=== PATIENT | female | born 1990 | race Caucasian/White ===

== ENCOUNTER 2022-09-30 13:17 | Inpatient (IN) | payer MEDICAID, SELFPAY ==
[2022-09-30 13:21] VITALS: BP 118/77; PULSE 96; RESP 14; TEMP 36.5; O2SAT 95; BMI 42.7
--- NOTE | 2022-09-30 13:47 | ED.C_ITS ---
HPI - Psych General: Chief Complaint: Psychiatric Symptoms Stated Complaint: SI Time Seen by Provider: 09/30/22 13:37 History of Present Illness: Patient presents to the ER with thoughts of suicidal ideation. Patient admits to having schizoaffective disorder. He also admits to masking it with methamphetamines fentanyl and heroin. He says he has been sober for a week and has not been able to get back on his medicine so the people at [facility] where he lives told him to come here and get evaluated. MD complaint: suicidal ideation Onset (ago): week(s) Duration: constant History of same: Yes Relieving factors: medication Exacerbating factors: other (Being without his medicine) Context: recent drug abuse and not taking psychiatric medications Associated psychiatric symptoms: suicidal ideation and auditory hallucinations Associated symptoms: Reports auditory hallucinations, delusions and suicidal ideation Treatments prior to arrival: none Review of Systems General: Reports: 10 or more systems reviewed and unremarkable except in HPI and below Psych: Reports: auditory hallucinations and suicidal ideation Physical Exam Const: COMMON NORMALS: no acute distress, average body habitus, patient oriented x3, no limitations, healthy appearing, alert and well nourished HENMT: COMMON NORMALS: normocephalic, atraumatic, hearing grossly normal bilaterally, external ears normal, Normal external nose present and moist oral mucous membranes HEAD & SCALP: normocephalic and atraumatic NOSE: Normal external nose present EXTERNAL EAR: Yes external ears normal Eye: COMMON NORMALS: Equal, round and reactive pupils present, EOMs intact bilaterally, conjunctivae normal and no scleral icterus CONJUNCTIVA: Yes conjunctivae normal PUPIL: Yes Equal, round and reactive pupils present Neck/C-Spine: COMMON NORMALS: full ROM, no lymphadenopathy, supple, no meningeal signs, no JVD and Thyroid normal THYROID: Thyroid normal Lymph: LYMPHATIC: no lymphadenopathy noted Chest: COMMONS NORMALS: normal inspection of the chest and normal palpation of entire chest wall Resp: COMMON NORMALS: normal respiratory effort, No retractions, No use of accessory muscles and clear to auscultation bilaterally AUSCULTATION: clear to auscultation bilaterally Cardio: COMMON NORMALS: no JVD, regular rate, regular rhythm, S1 normal heart sound present, S2 normal heart sound present, No gallops present (Cardio), No clicks present (Cardio), No murmurs present (Cardio) and No rub (Cardio) RATE: regular rate RHYTHM: regular rhythm HEART SOUNDS: S1 normal heart sound present and S2 normal heart sound present GI: COMMON NORMALS: Normal to inspection, nondistended, normoactive bowel sounds present, Soft to palpation, non-tender, No hepatosplenomegaly present and no masses PALPATION: Yes Soft to palpation and Yes No hepatosplenomegaly present Neuro: COMMON NORMALS: patient oriented x3 SENSORIUM/ORIENTATION: Yes alert MENINGEAL SIGNS: Yes no meningeal signs Psych: COMMON NORMALS: speech normal APPEARANCE: Yes grossly normal ACTIVITY/MOTOR BEHAVIOR: Yes appropriate eye contact SPEECH: Yes normal speech MOOD & AFFECT: Yes euthymic mood THOUGHT CONTENT: Yes Suicidality present, Yes delusions and Yes Hallucination(s) present Course Vital Signs: Vital signs: Vital Signs Temperature 97.7 F 09/30/22 13:21 Pulse Rate 96 09/30/22 13:21 Respiratory Rate 14 09/30/22 13:21 Blood Pressure 118/77 09/30/22 13:21 Pulse Oximetry 95 09/30/22 13:21 Oxygen Delivery Me thod Room Air 09/30/22 13:21 [facility] - Psych Medical Decision Making Patient presents to the ER with complaints of hearing voices that are telling him to harm himself. Patient it is not admitted methamphetamine user and has not been on his medicine for his schizoaffective disorder for quite some time. Patient states he has been self-medicating with methamphetamines but decided to quit then approximately 1 week ago and then voices started coming back. Psychi atric work-up was obtained patient is cleared admission to the Neuropsych Unit. Neuropsych Unit at this time does not have any beds but are anticipating 7 discharges in the morning. Differential Diagnosis Likely chronic schizophrenia and suicidal ideation; Unlikely acute psychosis, bipolar disorder, depression, drug-induced psychotic disorder or acute anxiety Medical Records I reviewed the patient's medical records. Lab Data I reviewed the patient's lab results. 09/30/22 13:58 09/30/22 13:58 Laboratory Results WBC 4.1 10^3/uL (4.0-10.0) 09/30/22 13:58 RBC 4.11 10^6/uL (4.1-5.3) 09/30/22 13:58 Hgb 12.7 g/dL (11.7-16.6) 09/30/22 13:58 Hct 38.9 % (42.0-52.0) L 09/30/22 13:58 MCV 94.6 fl (80-94) H 09/30/22 13:58 MCH 30.9 pg (28.0-34.0) 09/30/22 13:58 MCHC 32.6 g/dL (30.0-36.0) 09/30/22 13:58 RDW 13.8 % (12.1-15.1) 09/30/22 13:58 Plt Count 164 10^3/cmm (130-400) 09/30/22 13:58 MPV 11.6 fL (7.4-10.4) H 09/30/22 13:58 Neut % (Auto) 48.7 % 09/30/22 13:58 Lymph % (Auto) 36.7 % 09/30/22 13:58 [place] % (Auto) 10.4 % 09/30/22 13:58 Eos % (Auto) 2.7 % 09/30/22 13:58 Baso % (Auto) 0.5 % 09/30/22 13:58 Neut # (Auto) 2.01 10^3/uL (1.8-7.7) 09/30/22 13:58 Lymph # (Auto) 1.5 10^3/uL (0.8-4.8) 09/30/22 13:58 [place] # (Auto) 0.4 10^3/uL (0.2-0.9) 09/30/22 13:58 Eos # (Auto) 0.1 10^3/uL (0.0-0.8) 09/30/22 13:58 Baso # (Auto) 0.0 10^3/uL (0.0-0.1) 09/30/22 13:58 Nucleated RBC % (auto) 0 % 09/30/22 13:58 Nucleated RBCs # 0.0 /100WBC 09/30/22 13:58 Sodium 140 mmol/L (136-145) 09/30/22 13:58 Potassium 4.1 mmol/L (3.5-5.1) 09/30/22 13:58 Chloride 106 mmol/L (98-107) 09/30/22 13:58 Carbon Dioxide 26 mmol/L (22-29) 09/30/22 13:58 Anion Gap 12.1 (5-19) 09/30/22 13:58 BUN 11 mg/dL (6-20) 09/30/22 13:58 Creatinine 0.7 mg/dL (0.7-1.2) 09/30/22 13:58 GFR Calculation 129.9 mL/min (90-130) 09/30/22 13:58 Glucose 139 mg/dL (65-115) H 09/30/22 13:58 Calculated Osmolality 292 mOsm/kg (285-295) 09/30/22 13:58 Calcium 8.2 mg/dL (8.5-10.5) L 09/30/22 13:58 Total Bilirubin 0.3 mg/dL (0.15-1.2) 09/30/22 13:58 AST 44 U/L (0-40) H 09/30/22 13:58 ALT 118 U/L (0-41) H 09/30/22 13:58 Alkaline Phosphatase 112 U/L (40-130) 09/30/22 13:58 Total Protein 6.3 g/dL (6.6-8.7) L 09/30/22 13:58 Albumin 3.8 g/dL (3.5-5.2) 09/30/22 13:58 Globulin 2.5 g/dL (1.3-4.6) 09/30/22 13:58 Urine Color Yellow (Yellow) 09/30/22 13:35 Urine Appearance Clear (CLEAR) 09/30/22 13:35 Urine pH 7 (5-7) 09/30/22 13:35 Ur Specific [place] 1.010 (1.005-1.030) 09/30/22 13:35 Urine Protein Neg (Negative) 09/30/22 13:35 Urine Glucose (UA) Norm (Normal) 09/30/22 13:35 Urine Ketones Negative (Negative) 09/30/22 13:35 Urine Blood Neg (Negative) 09/30/22 13:35 Urine Nitrate Negative (Negative) 09/30/22 13:35 Urine Bilirubin Neg (Negative) 09/30/22 13:35 Urine Urobilinogen Norm mg/dL (Negative) 09/30/22 13:35 Ur Leukocyte Esterase Trace (Negative) H 09/30/22 13:35 Urine RBC Rare /hpf (0-2) 09/30/22 13:35 Urine WBC 5-10 /hpf (0-5) H 09/30/22 13:35 Ur Squamous Epith Cells 0-4 /hpf (0-5) H 09/30/22 13:35 Amorphous Sediment Not Reportable 09/30/22 13:35 Urine Bacteria Trace /hpf (NONE) 09/30/22 13:35 Salicylates < 0.3 mg/dL (3-10) L 09/30/22 13:58 Urine Opiates Screen Negative ng/mL (Negative) 09/30/22 13:35 Acetaminophen < 5.0 ug/mL (10-30) L 09/30/22 13:58 Ur Barbiturates Screen Negative ng/mL (Negative) 09/30/22 13:35 Ur Phencyclidine Scrn Negative ng/mL (Negative) 09/30/22 13:35 Ur Amphetamines Screen Negative ng/mL (Negative) 09/30/22 13:35 U Benzodiazepines Scrn Negative ng/mL (Negative) 09/30/22 13:35 Urine Cocaine Screen Negative ng/mL (Negative) 09/30/22 13:35 U Marijuana (THC) Screen Positive ng/mL (Negative) H 09/30/22 13:35 Ethyl Alcohol < 10 mg/dL (0-10) 09/30/22 13:58 Discharge Plan Discharge Clinical Impression: Suicidal ideation, Schizoaffective disorder Condition: Stable Prescriptions: No Action bupropion HCl 150 mg Tablet Sustained-Release 12 Hr 150 mg PO DAILY mirtazapine 15 mg Tablet 15 mg PO BEDTIME prazosin 2 mg Capsule 2 mg PO BEDTIME Coding Level of Care Code ED Sand Cutter Operator for Mila Miner
[2022-09-30 14:10] LABS: Basophils % 0.5 %; Eosinophils # 0.1 10^3/uL (0.0-0.8); Eosinophils % 2.7 %; Hematocrit 38.9 % (42.0-52.0); Hemoglobin 12.7 g/dL (11.7-16.6); Lymphocytes # 1.5 10^3/uL (0.8-4.8); Lymphocytes % 36.7 %; Mean Corpuscular HGB Conc 32.6 g/dL (30.0-36.0); Mean Corpuscular Hemoglobin 30.9 pg (28.0-34.0); Mean Corpuscular Volume 94.6 fl (80-94); Mean Platelet Volume 11.6 fL (7.4-10.4); Monocytes # 0.4 10^3/uL (0.2-0.9); Monocytes % 10.4 %; Neutrophils # 2.01 10^3/uL (1.8-7.7); Neutrophils % 48.7 %; Nucleated Red Blood Cells % 0 %; Platelet Count 164 10^3/cmm (130-400); Red Blood Count 4.11 10^6/uL (4.1-5.3); Red Cell Distribution Width 13.8 % (12.1-15.1); White Blood Count 4.1 10^3/uL (4.0-10.0)
[2022-09-30 14:15] LABS: Amphetamines Screen Urine Negative (Negative); Barbiturates Screen Urine Negative (Negative); Benzodiazepines Screen Urine Negative (Negative); Cocaine Screen Urine Negative (Negative); Opiate Screen Urine Negative (Negative); PCP Screen Urine Negative (Negative); THC Screen Urine Positive (Negative)
[2022-09-30 14:22] LABS: Alanine Aminotransferase 118 U/L (0-41); Albumin Level 3.8 g/dL (3.5-5.2); Alkaline Phosphatase 112 U/L (40-130); Anion Gap 12.1 (5-19); Aspartate Amino Transferase 44 U/L (0-40); Blood Urea Nitrogen 11 mg/dL (6-20); Calcium 8.2 mg/dL (8.5-10.5); Carbon Dioxide 26 mmol/L (22-29); Chloride 106 mmol/L (98-107); Globulin 2.5 g/dL (1.3-4.6); Glomerular Filtration Rate 129.9 mL/min (90-130); Glucose 139 mg/dL (65-115); Osmolality Calculated 292 mOsm/kg (285-295); Potassium 4.1 mmol/L (3.5-5.1); Sodium 140 mmol/L (136-145); Total Bilirubin 0.3 mg/dL (0.15-1.2); Total Protein 6.3 g/dL (6.6-8.7)
[2022-09-30 14:23] LABS: Acetaminophen < 5.0 ug/mL (10-30); Alcohol Level < 10 mg/dL (0-10); Salicylate < 0.3 mg/dL (3-10)
[2022-09-30 14:26] LABS: Add Urine Microscopic? YES; Bilirubin Urine Neg (Negative); Blood Urine Neg (Negative); Glucose Urine UA Norm (Normal); Ketones Urine Negative (Negative); Leukocyte Esterase Urine Trace (Negative); Nitrate Urine Negative (Negative); Protein Urine Neg (Negative); RBC Urine RARE /hpf (0-2); Urine Appearance Clear (CLEAR); Urine Color Yellow (Yellow); Urobilinogen Urine Norm (Negative); pH Urine 7 (5-7)
[2022-09-30 14:27] LABS: Add Urine Culture? No; Bacteria Urine TRACE /hpf; Squamous Epithelial Cell Urine 0-4 /hpf (0-5)
[2022-09-30 17:58] VITALS: PULSE 85; RESP 18; O2SAT 95
--- NOTE | 2022-09-30 19:05 | PC.NURSE ---
REPORT GIVEN TO ANA CHENG ASSUMED CARE.
[2022-09-30] MEDS: LORazepam 0.5 mg Tablet PO (19:07)
--- NOTE | 2022-09-30 20:47 | PC.NURSE ---
Id band removed by patient because it has male on the label and his name. Pt is transitioning to female and goes by the name star.
[2022-09-30 23:20] VITALS: BP 123/77; PULSE 95; O2SAT 96
[2022-09-30] MEDS: prazosin 1 mg Capsule 2 MG PO (23:48)
[2022-09-30] MEDS: trazodone 50 mg Tablet PO (23:58)
[2022-10-01] MEDS: acetaminophen 500 mg Tablet 1000 MG PO (03:38)
--- NOTE | 2022-10-01 07:16 | PC.NURSE ---
Patient asleep when I came on shift, sitter outside of room.
--- NOTE | 2022-10-01 07:46 | PC.NURSE ---
Patient given breakfast.
[2022-10-01 08:09] VITALS: BP 106/52; PULSE 67; RESP 18; O2SAT 94
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
[2022-10-01] MEDS: LORazepam 0.5 mg Tablet PO (14:59)
[2022-10-01 16:12] VITALS: BP 110/67; PULSE 69; RESP 20; O2SAT 96
[2022-10-01 16:43] VITALS: BP 123/87; PULSE 94; RESP 16; TEMP 36.8; O2SAT 95
[2022-10-01] MEDS: hyDROXYzine 25 mg Capsule 50 MG PO (18:17)
[2022-10-01] MEDS: paliperidone ER 6 mg Tablet PO (20:16)
[2022-10-01] MEDS: fluoxetine 20 mg Capsule PO (20:16)
[2022-10-01] MEDS: prazosin 1 mg Capsule 2 MG PO (20:16)
[2022-10-01] MEDS: valACYclovir 1,000 mg Tablet 1000 MG PO (20:16)
[2022-10-01] MEDS: mirtazapine 15 mg Tablet PO (20:16)
[2022-10-01 21:41] LABS: Hepatitis A Antibody IgM Non-Reactive (Nonreactive); Hepatitis B Core AB, Total Non-Reactive (Nonreactive); Hepatitis B Surface AB 44.6 (11.5-1000); Hepatitis B Surface Antigen Non-Reactive (Nonreactive); Hepatitis C Virus Antibody Non-Reactive (Nonreactive)
[2022-10-01] MEDS: trazodone 50 mg Tablet PO ×2 (21:46→22:48)
[2022-10-01 22:00] VITALS: BP 123/82; PULSE 100; RESP 18; TEMP 36.7; O2SAT 96
[2022-10-02] MEDS: hyDROXYzine 25 mg Capsule 50 MG PO ×2 (00:24→20:18)
[2022-10-02] MEDS: acetaminophen 325 mg Tablet 650 MG PO (00:24)
[2022-10-02] MEDS: OLANZapine 5 mg ODT PO ×4 (03:48→23:49)
--- NOTE | 2022-10-02 03:49 | PC.NURSE ---
Pt states that she is hallucinating at this time, and has increased anxiety. PRN Zyprexia Zydis administered per orders.
[2022-10-02 06:00] VITALS: BP 92/49; PULSE 73; RESP 16; TEMP 36.4; O2SAT 92
[2022-10-02] MEDS: valACYclovir 1,000 mg Tablet 1000 MG PO (09:27)
[2022-10-02] MEDS: fluoxetine 20 mg Capsule PO (09:27)
[2022-10-02 14:00] VITALS: BP 102/57; PULSE 91; RESP 16; TEMP 36.9; O2SAT 96
[2022-10-02] MEDS: paliperidone ER 6 mg Tablet PO (14:19)
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
[2022-10-02] MEDS: prazosin 1 mg Capsule 2 MG PO (20:18)
[2022-10-02] MEDS: trazodone 50 mg Tablet PO (20:18)
[2022-10-02] MEDS: mirtazapine 15 mg Tablet PO (20:18)
[2022-10-02] MEDS: haloperidol 5 mg Tablet PO (20:19)
[2022-10-02 21:41] VITALS: BP 123/84; PULSE 99; RESP 17; TEMP 37; O2SAT 94
[2022-10-03] MEDS: hyDROXYzine 25 mg Capsule 50 MG PO (01:23)
[2022-10-03] MEDS: haloperidol 5 mg Tablet PO ×2 (01:23→18:29)
[2022-10-03 06:00] VITALS: BP 111/60; PULSE 122; RESP 18; TEMP 36.4; O2SAT 95
--- NOTE | 2022-10-03 09:00 | PC.NURSE ---
PT IS CURRENTLY DENIES SI/HI/AH/VH. PT DID STATE THAT LAST NIGHT SHE WAS HEARING VOICES AND SEEING SHADOW PEOPLE BUT STATES THAT SHE IS NOT THIS MORNING. PT DID ENDORSE SOME ANXIETY BUT REFUSED MEDICATION STATING THAT SHE JUST WANTED SOME REST. PT WENT BACK TO LAYING DOWN AFTER ASSESSMENT.
[2022-10-03] MEDS: valACYclovir 1,000 mg Tablet 1000 MG PO (09:03)
[2022-10-03] MEDS: paliperidone ER 6 mg Tablet PO (09:03)
[2022-10-03] MEDS: fluoxetine 20 mg Capsule PO (09:03)
[2022-10-03 14:00] VITALS: BP 118/71; PULSE 86; RESP 18; TEMP 37.1; O2SAT 93
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
[2022-10-03 19:10] LABS: Chlamydia Trachomatis RNA TMA NOT DETECTED (NOT DETECTED); Neisseria Gonorrhoeae RNA, TMA NOT DETECTED (NOT DETECTED)
[2022-10-03] MEDS: OLANZapine 5 mg ODT PO (19:34)
[2022-10-03] MEDS: prazosin 1 mg Capsule 2 MG PO (20:31)
[2022-10-03] MEDS: trazodone 50 mg Tablet PO (20:31)
[2022-10-03] MEDS: mirtazapine 15 mg Tablet PO (20:31)
[2022-10-03] MEDS: acetaminophen 325 mg Tablet 650 MG PO (20:32)
[2022-10-03 22:37] VITALS: BP 105/59; PULSE 121; RESP 18; TEMP 36.7; O2SAT 96
[2022-10-04 00:15] LABS: HIV RNA (CPY/ML) NOT DETECTED (NOT DETECTED); HIV RNA LOG NOT DETECTED copies/mL (NOT DETECTED)
[2022-10-04] MEDS: trazodone 50 mg Tablet PO ×2 (01:44→20:29)
[2022-10-04 06:22] VITALS: BP 96/57; PULSE 82; RESP 17; TEMP 36.8; O2SAT 94
[2022-10-04] MEDS: valACYclovir 1,000 mg Tablet 1000 MG PO (08:50)
[2022-10-04] MEDS: paliperidone ER 6 mg Tablet PO (08:50)
[2022-10-04] MEDS: fluoxetine 20 mg Capsule PO (08:50)
[2022-10-04] MEDS: acetaminophen 325 mg Tablet 650 MG PO (08:52)
[2022-10-04] MEDS: hyDROXYzine 25 mg Capsule 50 MG PO ×2 (12:09→19:11)
--- NOTE | 2022-10-04 12:10 | PC.NURSE ---
Administered 50mg Vistaril for moderate anxiety
[2022-10-04 14:00] VITALS: BP 127/84; PULSE 87; RESP 18; TEMP 36.8; O2SAT 97
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
[2022-10-04] MEDS: neomycin-poly-bacitracin oint 28 gm 1 APPLIC TOPICAL (19:12)
[2022-10-04 20:19] VITALS: BP 104/64; PULSE 86; RESP 16; TEMP 36.6; O2SAT 94
[2022-10-04] MEDS: prazosin 1 mg Capsule 2 MG PO (20:28)
[2022-10-04] MEDS: OLANZapine 5 mg ODT PO (20:29)
[2022-10-04] MEDS: mirtazapine 15 mg Tablet PO (20:29)
[2022-10-04] MEDS: haloperidol 5 mg Tablet PO (22:11)
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
[2022-10-05 06:35] VITALS: RESP 13
[2022-10-05] MEDS: paliperidone ER 6 mg Tablet PO (09:06)
[2022-10-05] MEDS: fluoxetine 20 mg Capsule PO (09:07)
[2022-10-05] MEDS: valACYclovir 1,000 mg Tablet 1000 MG PO (09:07)
--- NOTE | 2022-10-05 12:40 | PC.NURSE ---
Ingrid from [facility] called. Patient can be picked up and taken to [facility] if the doctor decides to release him.
[2022-10-05 14:00] VITALS: BP 125/79; PULSE 107; RESP 16; O2SAT 93
[2022-10-05] MEDS: hyDROXYzine 25 mg Capsule 50 MG PO ×2 (15:10→20:35)
--- NOTE | 2022-10-05 15:11 | PC.NURSE ---
Patient reporting anxiety 6/10 cause is no particular reason . Patient given 50mg Vistaril. Will continue to monitor.
[2022-10-05] MEDS: OLANZapine 5 mg ODT PO ×2 (17:38→20:41)
--- NOTE | 2022-10-05 17:39 | PC.NURSE ---
Patient reporting 7/10 anxiety level. Patient unsure of the cause of her anxiety. Patient shaky. Patient encouraged to do deep breathing exercises.
[2022-10-05] MEDS: acetaminophen 325 mg Tablet 650 MG PO ×2 (17:49→21:34)
[2022-10-05] MEDS: nicotine 4 mg lozenge MUCOUS MEM ×2 (18:38→20:37)
[2022-10-05] MEDS: haloperidol 5 mg Tablet PO (19:58)
[2022-10-05] MEDS: mirtazapine 15 mg Tablet PO (20:34)
[2022-10-05] MEDS: prazosin 1 mg Capsule 2 MG PO (20:35)
[2022-10-05 20:58] VITALS: BP 114/78; PULSE 103; RESP 18; TEMP 36.7; O2SAT 95
[2022-10-05] MEDS: trazodone 50 mg Tablet PO (21:34)
[2022-10-06] MEDS: trazodone 50 mg Tablet PO ×3 (01:58→22:23)
[2022-10-06] MEDS: OLANZapine 5 mg ODT PO (01:58)
[2022-10-06 06:00] VITALS: BP 114/69; PULSE 94; RESP 16; TEMP 36.9; O2SAT 94
[2022-10-06] MEDS: fluoxetine 20 mg Capsule PO (09:06)
[2022-10-06] MEDS: paliperidone ER 6 mg Tablet PO (09:06)
[2022-10-06] MEDS: valACYclovir 1,000 mg Tablet 1000 MG PO (09:49)
[2022-10-06] MEDS: hyDROXYzine 25 mg Capsule 50 MG PO ×2 (11:00→20:11)
[2022-10-06] MEDS: nicotine 4 mg lozenge MUCOUS MEM ×4 (12:38→20:08)
[2022-10-06 13:53] VITALS: BP 122/79; PULSE 102; RESP 18; TEMP 36.7; O2SAT 97
[2022-10-06] MEDS: acetaminophen 325 mg Tablet 650 MG PO (17:12)
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
[2022-10-06] MEDS: buprenorphine-naloxone 4-1 mg Film 1 EACH SUBLINGUAL (19:25)
[2022-10-06] MEDS: prazosin 1 mg Capsule 2 MG PO (20:08)
[2022-10-06] MEDS: mirtazapine 15 mg Tablet PO (20:09)
[2022-10-06 20:28] VITALS: BP 112/73; PULSE 102; RESP 18; TEMP 36.9; O2SAT 96
[2022-10-07] MEDS: hyDROXYzine 25 mg Capsule 50 MG PO (03:13)
[2022-10-07 06:00] VITALS: BP 107/59; PULSE 89; RESP 18; O2SAT 94
[2022-10-07] MEDS: paliperidone ER 6 mg Tablet PO (08:23)
[2022-10-07] MEDS: fluoxetine 20 mg Capsule PO (08:23)
[2022-10-07] MEDS: buprenorphine-naloxone 4-1 mg Film 1 EACH SUBLINGUAL (08:23)
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
[2022-10-07 10:18] VITALS: BP 107/59; PULSE 89; RESP 18; O2SAT 94
[2022-10-07 10:25] VITALS: BP 107/59; PULSE 89; RESP 18; O2SAT 94
== END 2022-10-07 10:58 | disposition home or self-care (01) | DRG 885 ==
LOC: ER 13:52 → ER IP 19:33 → NP 10-01 15:38
PROVIDERS: Admitting Provider Psychiatry & Neurology Psychiatry; Emergency Provider Emergency Medicine; Visit Provider Psychiatry & Neurology Psychiatry
DX: F25.9 Schizoaffective disorder, unspecified (principal); R45.851 Suicidal ideations; F15.20 Other stimulant dependence, uncomplicated; F11.20 Opioid dependence, uncomplicated; F64.0 Transsexualism; F43.10 Post-traumatic stress disorder, unspecified
CPT/HCPCS: 36415; 80053; 80306; 80307; 81001; 85025; 86705; 86706; 86709; 86803; 87340; 87491; 87536; 87591; 97150; 97165; 99238; 99285; J0573

== ENCOUNTER 2022-10-09 13:46 | Emergency (ER) | payer MEDICAID, SELFPAY ==
[2022-10-09 14:07] VITALS: BP 113/73; PULSE 82; RESP 17; TEMP 36.5; O2SAT 95; BMI 42.5
--- NOTE | 2022-10-09 14:35 | XR_ITS ---
WS: [id number] Portable AP upright chest, 10/09/2022 Clinical Data: fever Comparison: None. Findings: No nodules, masses or effusions are seen. The heart is normal. The pulmonary vascularity is not increased. No pneumonia or pneumothorax is seen. The patient has a poor inspiratory effort which makes the heart appear larger. XR/XR chest 1V portable [id number] Impression: Negative chest.
--- NOTE | 2022-10-09 14:35 | ED_ITS ---
HPI - Fever General: Chief Complaint: Fever Stated Complaint: fever Time Seen by Provider: 10/09/22 14:06 Source: patient Mode of arrival: ambulatory History of Present Illness: 31-year-old male presents emergency room complaining of a temperature of 202.8 this morning. He had some nausea vomiting also reports having been constipated. He is on Suboxone and fluoxetine. He denies any dysuria urgency or frequency. He denies any shortness of breath cough no abdominal pain. No skin lesions or rashes. Patient denies any history of any chronic medical issues MD elicited complaint: fever Onset (ago): day(s) Exacerbating factors: nothing Relieving factors: nothing Associated symptoms: Reports headache(s); Deny abdominal pain, flank pain, chills, chest pain, confusion, cough, diarrhea, dysuria, extremity pain, myalgias, nasal congestion, nausea, night sweats, rash, rhinorrhea, short of breath, sinus pain, stiffness, sore throat, vaginal discharge, vomiting or weight loss Review of Systems Const: Reports: fever(s); Denies: chills or night sweats ENMT: Reports: throat pain; Denies: nasal congestion or sinus pain Card: Denies: chest pain Resp: Denies: dyspnea, productive cough or non-productive cough GI: Reports: constipation; Denies: abdominal pain, nausea, vomiting or diarrhea : Denies: flank pain, dysuria, urinary frequency, urinary urgency or vaginal discharge Musc: Denies: extremity pain Skin/Breast: Denies: rash or pruritus Neuro: Reports: headache(s); Denies: confusion [facility] ED PFSH: Medical History (Updated 10/10/22 @ 06:06 by Leonard Thomas DO) Methamphetamine use disorder, severe Opioid use disorder, severe, dependence PTSD (post-traumatic stress disorder) Schizoaffective disorder Physical Exam Const: COMMON NORMALS: no acute distress GENERAL APPEARANCE: cooperative and comfortable ORIENTATION/CONSCIOUSNESS: Yes awake, Yes oriented to person, Yes oriented to place and Yes oriented to time HENMT: COMMON NORMALS: normocephalic, atraumatic, hearing grossly normal bilaterally, external ears normal, EAC's normal, TM's normal bilaterally and Normal nasal mucous membranes and turbinates present HEAD & SCALP: normocephalic and atraumatic NOSE: Normal nasal mucous membranes and turbinates present EXTERNAL EAR: Yes external ears normal EXTERNAL AUDITORY CANAL: EAC's normal TYMPANIC MEMBRANE: TM's normal bilaterally Eye: COMMON NORMALS: Equal, round and reactive pupils present, EOMs intact bilaterally, conjunctivae normal and no scleral icterus CONJUNCTIVA: Yes conjunctivae normal PUPIL: Yes Equal, round and reactive pupils present Neck/C-Spine: COMMON NORMALS: full ROM, no lymphadenopathy and no meningeal signs Lymph: LYMPHATIC: no lymphadenopathy noted and no lymphedema noted Resp: COMMON NORMALS: normal respiratory effort, No retractions, No use of accessory muscles and clear to auscultation bilaterally AUSCULTATION: clear to auscultation bilaterally Cardio: COMMON NORMALS: regular rate, regular rhythm and No murmurs present (Cardio) RATE: regular rate RHYTHM: regular rhythm GI: COMMON NORMALS: Soft to palpation and No hepatosplenomegaly present AUSCULTATION: Yes normoactive bowel sounds PALPATION: Yes Soft to palpation, No Tenderness to palpation present (GI), No Guarding due to palpation present (GI) and Yes No hepatosplenomegaly present Extremity: COMMON NORMALS: normal to inspection, capillary refill normal, no clubbing, cyanosis or edema, no calf tenderness and no pedal edema Neuro: SENSORIUM/ORIENTATION: Yes oriented to person, Yes oriented to place and Yes oriented to time MENINGEAL SIGNS: Yes no meningeal signs Skin: COMMON NORMALS: no rashes or lesions noted GENERAL SKIN EXAM: no rashes or lesions noted Course Vital Signs: Vital signs: Vital Signs Temperature 97.7 F 10/09/22 14:07 Pulse Rate 74 10/09/22 17:47 Respiratory Rate 17 10/09/22 17:47 Blood Pressure 106/57 10/09/22 17:47 Pulse Oximetry 94 10/09/22 17:47 Oxygen Delivery Me thod Room Air 10/09/22 16:35 MDM - Fever Medical Decision Making Labs and imaging reviewed. No significant finding. Suspect patient has a viral respiratory infection does have a bit of a sore throat and headache. There is no pneumonia no evidence of UTI his exam is benign. Will discharge home with supportive cares return if is further problems. Medical Records I reviewed the patient's medical records. Lab Data I reviewed the patient's lab results. 10/09/22 15:00 10/09/22 15:00 Radiology Impressions Chest X-Ray 10/09/22 14:35 Impression: Negative chest. Laboratory Results WBC 3.6 10^3/uL (4.0-10.0) L 10/09/22 15:00 RBC 4.21 10^6/uL (4.1-5.3) 10/09/22 15:00 Hgb 12.6 g/dL (11.5-15.3) 10/09/22 15:00 Hct 39.1 % (37.0-47.0) 10/09/22 15:00 MCV 92.9 fl (81-99) 10/09/22 15:00 MCH 29.9 pg (28.0-34.0) 10/09/22 15:00 MCHC 32.2 g/dL (30.0-36.0) 10/09/22 15:00 RDW 13.1 % (12.1-15.1) 10/09/22 15:00 Plt Count 174 10^3/cmm (130-400) 10/09/22 15:00 MPV 10.5 fL (7.4-10.4) H 10/09/22 15:00 Neut % (Auto) 54.0 % 10/09/22 15:00 Lymph % (Auto) 30.4 % 10/09/22 15:00 [place] % (Auto) 12.8 % 10/09/22 15:00 Eos % (Auto) 1.7 % 10/09/22 15:00 Baso % (Auto) 0.3 % 10/09/22 15:00 Neut # (Auto) 1.93 10^3/uL (1.8-7.7) 10/09/22 15:00 Lymph # (Auto) 1.1 10^3/uL (0.8-4.8) 10/09/22 15:00 [place] # (Auto) 0.5 10^3/uL (0.2-0.9) 10/09/22 15:00 Eos # (Auto) 0.1 10^3/uL (0.0-0.8) 10/09/22 15:00 Baso # (Auto) 0.0 10^3/uL (0.0-0.1) 10/09/22 15:00 Nucleated RBC % (auto) 0 % 10/09/22 15:00 Nucleated RBCs # 0.0 /100WBC 10/09/22 15:00 Sodium 136 mmol/L (136-145) 10/09/22 15:00 Potassium 4.0 mmol/L (3.5-5.1) 10/09/22 15:00 Chloride 101 mmol/L (98-107) 10/09/22 15:00 Carbon Dioxide 27 mmol/L (22-29) 10/09/22 15:00 Anion Gap 12.0 (5-19) 10/09/22 15:00 BUN 7 mg/dL (6-20) 10/09/22 15:00 Creatinine 0.7 mg/dL (0.5-0.9) 10/09/22 15:00 GFR Calculation 96.4 mL/min (90-130) 10/09/22 15:00 Glucose 104 mg/dL (65-115) 10/09/22 15:00 Calculated Osmolality 280 mOsm/kg (285-295) L 10/09/22 15:00 Calcium 8.1 mg/dL (8.5-10.5) L 10/09/22 15:00 Total Bilirubin 0.2 mg/dL (0.15-1.2) 10/09/22 15:00 AST 23 U/L (0-32) 10/09/22 15:00 ALT 42 U/L (0-33) H 10/09/22 15:00 Alkaline Phosphatase 101 U/L (35-105) 10/09/22 15:00 C-Reactive Protein 63.8 mg/L (0.0-4.9) H 10/09/22 15:00 Total Protein 6.3 g/dL (6.6-8.7) L 10/09/22 15:00 Albumin 3.4 g/dL (3.5-5.2) L 10/09/22 15:00 Globulin 2.9 g/dL (1.3-4.6) 10/09/22 15:00 Lipase 10 U/L (13-60) L 10/09/22 15:00 HCG, Qual Cancelled 10/09/22 15:00 Urine Color Yellow (Yellow) 10/09/22 16:25 Urine Appearance Clear (CLEAR) 10/09/22 16:25 Urine pH 6 (5-7) 10/09/22 16:25 Ur Specific [place] 1.010 (1.005-1.030) 10/09/22 16:25 Urine Protein Neg (Negative) 10/09/22 16:25 Urine Glucose (UA) Norm (Normal) 10/09/22 16:25 Urine Ketones Negative (Negative) 10/09/22 16:25 Urine Blood Neg (Negative) 10/09/22 16:25 Urine Nitrate Negative (Negative) 10/09/22 16:25 Urine Bilirubin Neg (Negative) 10/09/22 16:25 Urine Urobilinogen Norm mg/dL (Negative) 10/09/22 16:25 Ur Leukocyte Esterase Negative (Negative) 10/09/22 16:25 Discharge Plan Discharge Patient Disposition: Home Clinical Impression: Viral infection Condition: Stable Prescriptions: No Action trazodone 50 mg Tablet 50 mg PO BEDTIME PRN (Reason: Sleep) 14 Days Qty: 14 1RF prazosin 1 mg Capsule 2 mg PO BEDTIME 14 Days Qty: 28 1RF mirtazapine 15 mg Tablet 15 mg PO BEDTIME Qty: 14 1RF fluoxetine 20 mg Capsule 20 mg PO DAILY Qty: 14 1RF paliperidone 6 mg Tablet Extended Release 24 Hr 6 mg PO DAILY 14 Days Qty: 14 1RF buprenorphine-naloxone 8-2 mg film 1 film sublingual Q24H 30 Days Qty: 30 0RF Discharge Orders: Discharge ED (Routine); Ordered 10/09/22 Ordered By: Leonard Thomas Discharge Diet: Usual diet Discharge Activity: Increase activity as tolerated Patient Instructions: Opioid Safety, Pain Management Activity Restrictions/Additional Instructions: You were seen in the emergency room for fever. Laboratory tests are unremarkable exam did not show any significant rales urine and chest x-ray were normal. Suspect this is a viral upper respiratory infection Tylenol or Profen supportive cares for any worsening change symptoms return to the emergency room. 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
[2022-10-09 15:21] LABS: Basophils % 0.3 %; Eosinophils # 0.1 10^3/uL (0.0-0.8); Eosinophils % 1.7 %; Hematocrit 39.1 % (37.0-47.0); Hemoglobin 12.6 g/dL (11.5-15.3); Lymphocytes # 1.1 10^3/uL (0.8-4.8); Lymphocytes % 30.4 %; Mean Corpuscular HGB Conc 32.2 g/dL (30.0-36.0); Mean Corpuscular Hemoglobin 29.9 pg (28.0-34.0); Mean Corpuscular Volume 92.9 fl (81-99); Mean Platelet Volume 10.5 fL (7.4-10.4); Monocytes # 0.5 10^3/uL (0.2-0.9); Monocytes % 12.8 %; Neutrophils # 1.93 10^3/uL (1.8-7.7); Nucleated Red Blood Cells % 0 %; Platelet Count 174 10^3/cmm (130-400); Red Blood Count 4.21 10^6/uL (4.1-5.3); Red Cell Distribution Width 13.1 % (12.1-15.1); White Blood Count 3.6 10^3/uL (4.0-10.0)
[2022-10-09 15:37] LABS: Alanine Aminotransferase 42 U/L (0-33); Albumin Level 3.4 g/dL (3.5-5.2); Alkaline Phosphatase 101 U/L (35-105); Aspartate Amino Transferase 23 U/L (0-32); Blood Urea Nitrogen 7 mg/dL (6-20); C Reactive Protein 63.8 mg/L (0.0-4.9); Calcium 8.1 mg/dL (8.5-10.5); Carbon Dioxide 27 mmol/L (22-29); Chloride 101 mmol/L (98-107); Globulin 2.9 g/dL (1.3-4.6); Glomerular Filtration Rate 96.4 mL/min (90-130); Glucose 104 mg/dL (65-115); Lipase 10 U/L (13-60); Osmolality Calculated 280 mOsm/kg (285-295); Sodium 136 mmol/L (136-145); Total Bilirubin 0.2 mg/dL (0.15-1.2); Total Protein 6.3 g/dL (6.6-8.7)
[2022-10-09 16:30] LABS: Add Urine Microscopic? NO; Charge for UA Resulting for Rev
[2022-10-09 16:35] VITALS: BP 125/66; PULSE 77; RESP 16; O2SAT 96
[2022-10-09 16:51] LABS: Bilirubin Urine Neg (Negative); Blood Urine Neg (Negative); Glucose Urine UA Norm (Normal); Ketones Urine Negative (Negative); Leukocyte Esterase Urine Negative (Negative); Nitrate Urine Negative (Negative); Protein Urine Neg (Negative); Urine Appearance Clear (CLEAR); Urine Color Yellow (Yellow); Urobilinogen Urine Norm (Negative); pH Urine 6 (5-7)
[2022-10-09 17:47] VITALS: BP 106/57; PULSE 74; RESP 17; O2SAT 94
--- NOTE | 2022-10-17 13:26 | DCPLANNER ---
medical and health services manager was triggered to call patient due to no primary care physician - patient does not live in the area.
== END 2022-10-09 17:47 | disposition home or self-care (01) ==
PROVIDERS: Physician Assistant; Emergency Provider Family Medicine
DX: B34.9 Viral infection, unspecified (principal)
CPT/HCPCS: 36415; 71045; 80053; 81003; 83690; 85025; 86140; 87040; 99284

== ENCOUNTER 2022-10-12 19:43 | Emergency (ER) | payer MEDICAID, SELFPAY ==
[2022-10-12 20:13] VITALS: BP 152/91; PULSE 91; RESP 16; TEMP 36.6; O2SAT 97
--- NOTE | 2022-10-12 20:38 | W.ED.EXTPRO ---
HPI - Extremity Problem General: Chief complaint: Extremity Problem,Nontraumatic Stated complaint: Recturm Infections And Legs, Ankles Swollen Time Seen by Provider: 10/12/22 20:19 History of Present Illness: Patient presents to the ER with complaints of lower extremity swelling starting today. Both legs from the knee down are swollen the feet have about 2+ pitting edema in them and will not fit in his shoes. There is no calf tenderness and patient is not on diuretics. MD Complaint: extremity swelling Onset (ago): day(s) (Today) Relieving factors: nothing Exacerbating factors: nothing Associated symptoms: Reports no associated symptoms Review of Systems General: Reports: 10 or more systems reviewed and unremarkable except in HPI and below PFSH ED PFSH: Medical History Methamphetamine use disorder, severe Opioid use disorder, severe, dependence PTSD (post-traumatic stress disorder) Schizoaffective disorder Physical Exam Const: COMMON NORMALS: no acute distress, average body habitus, patient oriented x3, no limitations, healthy appearing, alert and well nourished HENMT: COMMON NORMALS: normocephalic, atraumatic, hearing grossly normal bilaterally, external ears normal, Normal external nose present and moist oral mucous membranes HEAD & SCALP: normocephalic and atraumatic NOSE: Normal external nose present EXTERNAL EAR: Yes external ears normal Neck/C-Spine: COMMON NORMALS: no JVD Chest: COMMONS NORMALS: normal inspection of the chest and normal palpation of entire chest wall Resp: COMMON NORMALS: normal respiratory effort, No retractions, No use of accessory muscles and clear to auscultation bilaterally AUSCULTATION: clear to auscultation bilaterally Cardio: COMMON NORMALS: no JVD, regular rate, regular rhythm, S1 normal heart sound present, S2 normal heart sound present, No gallops present (Cardio), No clicks present (Cardio) and No murmurs present (Cardio) RATE: regular rate RHYTHM: regular rhythm HEART SOUNDS: S1 normal heart sound present and S2 normal heart sound present GI: COMMON NORMALS: Normal to inspection, nondistended, normoactive bowel sounds present, Soft to palpation, non-tender, No hepatosplenomegaly present and no masses PALPATION: Yes Soft to palpation and Yes No hepatosplenomegaly present : COMMON NORMALS: Yes no CVA tenderness BLADDER/KIDNEY EXAM: Yes no CVA tenderness Back/Pelvis: COMMON NORMALS: no CVA tenderness Extremity: NARRATIVE EXTREMITY EXAM: 1-2+ pitting edema bilateral lower extremities to mid cagle. Calfs not tender to palpate no redness erythema or streaking. Neuro: COMMON NORMALS: patient oriented x3 SENSORIUM/ORIENTATION: Yes alert Skin: NARRATIVE SKIN EXAM: External rectum area was examined and did show irritation and excoriation. Course Vital Signs: Vital signs: Vital Signs Temperature 97.9 F 10/12/22 20:13 Pulse Rate 91 10/12/22 20:13 Respiratory Rate 16 10/12/22 20:13 Blood Pressure 152/91 10/12/22 20:13 Pulse Oximetry 97 10/12/22 20:13 Oxygen Delivery Me thod Room Air 10/12/22 20:13 MDM - Extremity (Nontraumatic) Medical Decision Making Patient presents today for evaluation of bilateral lower extremity edema. There is no redness no calf tenderness and edema is equal bilaterally. Patient is not on diuretic. Patient will be placed on HCTZ 25 mg 1 p.o. every morning and is to follow-up with his PCP in approximately 1 week or as needed. Differential Diagnosis Unlikely herpes zoster, gout, cellulitis, superficial thrombophlebitis, deep venous thrombosis of upper extremity, lower extremity edema or deep vein thrombosis of lower extremity Medical Records I reviewed the patient's medical records. Lab Data I reviewed the patient's lab results. Discharge Plan Discharge Patient Disposition: Home Clinical Impression: Lower extremity edema, Rectal irritation Condition: Stable Prescriptions: New hydrochlorothiazide 25 mg tablet 25 mg PO DAILY PRN (Reason: edema) Qty: 14 0RF mupirocin 2 % ointment 1 applic topical BID Qty: 22 0RF No Action mineral oil [Ulmle-Qu-Cdl Enema (min oil)] Enema 118 ml RI DAILY PRN (Reason: constipation) Qty: 472 0RF Rx Instructions: discard any unused portion polyethylene glycol 3350 [Miralax] 17 gram/dose powder 17 g PO DAILY Qty: 510 0RF lactulose 10 gram packet 20 g PO DAILY PRN (Reason: constipation) Qty: 15 0RF hydrocortisone [Preparation H Hydrocortisone] 1 % cream 1 applic topical TID PRN (Reason: skin irritation) Qty: 28.4 0RF trazodone 50 mg Tablet 50 mg PO BEDTIME PRN (Reason: Sleep) 14 Days Qty: 14 1RF prazosin 1 mg Capsule 2 mg PO BEDTIME 14 Days Qty: 28 1RF mirtazapine 15 mg Tablet 15 mg PO BEDTIME Qty: 14 1RF fluoxetine 20 mg Capsule 20 mg PO DAILY Qty: 14 1RF paliperidone 6 mg Tablet Extended Release 24 Hr 6 mg PO DAILY 14 Days Qty: 14 1RF buprenorphine-naloxone 8-2 mg film 1 film sublingual Q24H 30 Days Qty: 30 0RF Discharge Orders: Discharge ED (Routine); Ordered 10/12/22 Ordered By: Javi Zeng Patient Instructions: Edema (ED) Activity Restrictions/Additional Instructions: Use your medicine as indicated and as needed. Please follow-up with your family practice doc within 1 week for further evaluation and treatment. 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
--- NOTE | 2022-10-16 13:28 | DCPLANNER ---
manager water was triggered to call patient due to no primary care physician - patient does not live in the area.
== END 2022-10-12 21:18 | disposition home or self-care (01) ==
PROVIDERS: Emergency Provider Emergency Medicine
DX: R60.0 Localized edema (principal); K62.89 Other specified diseases of anus and rectum
CPT/HCPCS: 99283

== ENCOUNTER 2022-10-24 15:30 | Emergency (ER) | payer MEDICAID, SELFPAY ==
[2022-10-24 15:44] VITALS: BP 118/72; PULSE 89; RESP 16; TEMP 36.9; O2SAT 95; BMI 45.1
--- NOTE | 2022-10-24 16:10 | ED_ITS ---
HPI - Extremity Problem General: Chief complaint: Extremity Problem,Nontraumatic Stated complaint: Possible blood clot Time Seen by Provider: 10/24/22 15:55 Source: patient History of Present Illness: Patient presents emergency room with complaints of swelling and pain in the left lower leg. This been present for last couple of days spent some chronic lower extremity edema as well for which patient is uses Lasix with moderate relief of symptoms no history of DVT or PE is not on any anticoagulants MD Complaint: extremity pain Onset (ago): day(s) Pain Consistency: intermittent Location: left and lower extremity Relieving factors: nothing Exacerbating factors: nothing Associated symptoms: Deny arthralgias, chest pain, fever(s), myalgias, rash or short of breath Review of Systems Const: Denies: fever(s), chills, fatigue or malaise ENMT: Denies: throat pain, ear or mastoid pain, nasal discharge or nasal congestion Card: Denies: chest pain, palpitations, irregular heart rhythm or edema Resp: Denies: dyspnea, productive cough or non-productive cough GI: Denies: abdominal pain, nausea, vomiting, hematemesis, coffee ground emesis, diarrhea, constipation, bloating, hematochezia or melena : Denies: flank pain, difficulty voiding, dysuria, urinary frequency or urinary urgency Skin/Breast: Denies: rash PFSH ED PFSH: Medical History Methamphetamine use disorder, severe Opioid use disorder, severe, dependence Psychiatric care PTSD (post-traumatic stress disorder) Schizoaffective disorder Physical Exam Const: GENERAL APPEARANCE: cooperative and comfortable ORIENTATION/CONSCIOUSNESS: Yes awake, Yes oriented to person, Yes oriented to place and Yes oriented to time HENMT: COMMON NORMALS: normocephalic, atraumatic and hearing grossly normal bilaterally HEAD & SCALP: normocephalic and atraumatic Resp: COMMON NORMALS: normal respiratory effort, No retractions, No use of accessory muscles and clear to auscultation bilaterally AUSCULTATION: clear to auscultation bilaterally Cardio: COMMON NORMALS: regular rate, regular rhythm and No murmurs present (Cardio) RATE: regular rate RHYTHM: regular rhythm GI: COMMON NORMALS: Soft to palpation and No hepatosplenomegaly present AUSCULTATION: Yes normoactive bowel sounds PALPATION: Yes Soft to palpation, No Tenderness to palpation present (GI), No Guarding due to palpation present (GI) and Yes No hepatosplenomegaly present Extremity: COMMON NORMALS: normal to inspection, capillary refill normal, no clubbing, cyanosis or edema, no calf tenderness and no pedal edema Neuro: SENSORIUM/ORIENTATION: Yes oriented to person, Yes oriented to place and Yes oriented to time Skin: COMMON NORMALS: no rashes or lesions noted GENERAL SKIN EXAM: no rashes or lesions noted Course Vital Signs: Vital signs: Vital Signs Temperature 98.4 F 10/24/22 15:44 Pulse Rate 83 10/24/22 16:57 Respiratory Rate 16 10/24/22 15:44 Blood Pressure 116/75 10/24/22 16:57 Pulse Oximetry 96 10/24/22 16:57 Oxygen Delivery Me thod Room Air 10/24/22 15:44 MDM - Extremity (Nontraumatic) Medical Decision Making Venous duplex negative. Continue Lasix we did give him a dose of Lasix here if he has any worsening or change symptoms return to the emergency room. Medical Records I reviewed the patient's medical records. Lab Data I reviewed the patient's lab results. Radiology Impressions Venous Duplex 10/24/22 16:10 IMPRESSION: 1. No sonographic evidence of deep venous thrombosis. 2. Additional findings, as above. Discharge Plan Discharge Patient Disposition: Home Clinical Impression: Lower extremity edema Condition: Stable Prescriptions: No Action mineral oil [Pwrtn-Td-Ngs Enema (min oil)] Enema 118 ml MD DAILY PRN (Reason: constipation) Qty: 472 0RF Rx Instructions: discard any unused portion polyethylene glycol 3350 [Miralax] 17 gram/dose powder 17 g PO DAILY Qty: 510 0RF lactulose 10 gram packet 20 g PO DAILY PRN (Reason: constipation) Qty: 15 0RF hydrocortisone [Preparation H Hydrocortisone] 1 % cream 1 applic topical TID PRN (Reason: skin irritation) Qty: 28.4 0RF bupropion HCl [Wellbutrin SR] 150 mg tablet sustained-release 12 hr 150 mg PO DAILY valacyclovir 1 gram tablet 1,000 mg PO TID 7 Days Qty: 21 0RF trazodone 50 mg Tablet 50 mg PO BEDTIME PRN (Reason: Sleep) 14 Days Qty: 14 1RF prazosin 1 mg Capsule 2 mg PO BEDTIME 14 Days Qty: 28 1RF mirtazapine 15 mg Tablet 15 mg PO BEDTIME Qty: 14 1RF fluoxetine 20 mg Capsule 20 mg PO DAILY Qty: 14 1RF paliperidone 6 mg Tablet Extended Release 24 Hr 6 mg PO DAILY 14 Days Qty: 14 1RF buprenorphine-naloxone 8-2 mg film 1 film sublingual Q24H 30 Days Qty: 30 0RF hydrochlorothiazide 25 mg tablet 25 mg PO DAILY PRN (Reason: edema) Qty: 14 0RF mupirocin 2 % ointment 1 applic topical BID Qty: 22 0RF Benadryl 25 mg capsule 25 mg PO TID PRN (Reason: itching) Qty: 10 0RF Bactrim DS 800-160 mg tablet 1 tab PO BID 10 Days Qty: 20 0RF Discharge Orders: Discharge ED (Routine); Ordered 10/24/22 Ordered By: Leonard Thomas Patient Instructions: Opioid Safety, Pain Management Activity Restrictions/Additional Instructions: You are seen today with swelling in her legs. Ultrasound showed no sign of DVT. Recommend that you continue current medications follow-up with primary care doctor. Fluid restriction and low-salt diet would also be helpful. 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
--- NOTE | 2022-10-24 16:10 | USR_ITS ---
PROCEDURE INFORMATION: Exam: US Duplex Left Lower Extremity Veins, Limited Exam date and time: 10/24/2022 4:16 PM Age: 31 years old Clinical indication: Edema, localized; Lower extremity, left; Additional info: Swelling TECHNIQUE: Imaging protocol: Real-time duplex ultrasound of the left extremity with 2-D wellington scale, color Doppler flow and spectral waveform analysis including responses to compression and other maneuvers (when performed) with image documentation. Limited exam focused on the left lower extremity veins. COMPARISON: No relevant prior studies available. FINDINGS: Left deep veins: Unremarkable. The common femoral, femoral, proximal profunda femoral, popliteal, posterior tibial and peroneal veins are patent without thrombus. Normal compressibility, augmentation response and Doppler waveforms. Left superficial veins: Unremarkable. Saphenofemoral junction is patent without thrombus. Soft tissues: Unremarkable. Lymph nodes: Mildly enlarged left inguinal lymph nodes, likely reactive. US/CV venous duplex [facility] [id number] IMPRESSION: 1. No sonographic evidence of deep venous thrombosis. 2. Additional findings, as above.
[2022-10-24 16:26] VITALS: BP 116/75; PULSE 83; O2SAT 96
[2022-10-24 16:57] VITALS: BP 116/75; PULSE 83; O2SAT 96
== END 2022-10-24 16:58 | disposition home or self-care (01) ==
PROVIDERS: Emergency Provider Family Medicine
DX: R60.0 Localized edema (principal)
CPT/HCPCS: 93971; 99284

== ENCOUNTER 2022-10-25 14:37 | Emergency (ER) | payer MEDICAID, SELFPAY ==
[2022-10-25 14:39] VITALS: BP 141/64; PULSE 100; RESP 18; TEMP 36.8; O2SAT 96; BMI 44.6
--- NOTE | 2022-10-25 15:04 | ED_ITS ---
HPI - Skin/Abscess/Foreign Bdy General: Chief complaint: Skin/Abscess/Foreign Body Stated complaint: Rash all over body Time Seen by Provider: 10/25/22 14:45 Source: patient Mode of arrival: ambulatory Limitations: no limitations History of Present Illness: 31-year-old transgender female presents to the ER today for a rash that began 24 hours ago. Patient reports they live in a rehab facility and are being treated for syphilis. They report they were not tested but through a telehealth conference call they were started on antibiotics for syphilis due to a discharge from their penis and also a rash on the palms and soles of the feet. Patient reports they do not know what antibiotic they were started on but they began it yesterday and took a dose yesterday and 1 this morning and a worsening rash began. This rash is located from the left side of the neck all the way down the left trunk and arm. There is some mild itching with it. Denies any sore throat. Denies any fevers. Patient also reports a tender lump on his bottom around his rectum. Patient reports this has been there for several days and is worsening. Patient also admits he was supposed to get a penicillin injection along with a Rocephin injection next week after the nurse at his facility came back. Patient was being treated for gonorrhea and chlamydia in addition to the syphilis. Review of Systems General: Reports: 10 or more systems reviewed and unremarkable except in HPI and below PFSH ED PFSH: Medical History Methamphetamine use disorder, severe Opioid use disorder, severe, dependence Psychiatric care PTSD (post-traumatic stress disorder) Schizoaffective disorder Physical Exam Const: COMMON NORMALS: no acute distress, average body habitus, patient oriented x3, no limitations, healthy appearing, alert and well nourished Resp: COMMON NORMALS: normal respiratory effort EFFORT & INSPECTION: Yes able to speak in complete sentences Cardio: COMMON NORMALS: regular rate and regular rhythm RATE: regular rate RHYTHM: regular rhythm : RECTO-VAGINAL: other (Patient has an ulcerated type of lesion perirectally with mild erythema) OTHER: No obvious abscess noted. Purulent discharge is noted from the area. Extremity: COMMON NORMALS: normal to inspection, full ROM and no pedal edema Neuro: COMMON NORMALS: patient oriented x3 SENSORIUM/ORIENTATION: Yes alert Psych: COMMON NORMALS: cooperative Skin: NARRATIVE SKIN EXAM: Patient is noted to have a maculopapular slightly raised diffuse rash to the left side of the neck and trunk and also down the left arm. There are small lesions noted on the palms of the hands and soles of the feet. These do not appear raised. Patient reports some mild tenderness with them. No plaque-like lesions are noted. Course ED course: Patient presents to the ER with a worsening rash over the last 24 hours. Patient reports he recently started on antibiotics for syphilis. They were not tested at the time the antibiotics were started. They report they had a penile discharge and that is why they were started empirically. Patient reports the rash worsened after the second dose of antibiotics. I would recommend we get syphilis testing at this time. Vital Signs: Vital signs: Vital Signs Temperature 98.3 F 10/25/22 14:39 Pulse Rate 100 10/25/22 14:39 Respiratory Rate 18 10/25/22 14:39 Blood Pressure 141/64 10/25/22 14:39 Pulse Oximetry 96 10/25/22 14:39 Oxygen Delivery Me thod Room Air 10/25/22 14:39 MDM - Skin/Abscess/Foreign Bdy Medicial Decision Making Syphilis testing was performed today. This is a send out test however given rash that began after patient started the doxycycline, we will stop the doxycycline. First-line treatment for syphilis is actually penicillin G which we will give in the ER today. Also given the perirectal ulcer/early abscess, we will go ahead and treat with Bactrim. Patient also be given Rocephin as he was set to get that tomorrow to cover for gonorrhea and chlamydia. Patient will be contacted with syphilis results. Recommend abstaining from intercourse until results are obtained. Okay to take Benadryl as needed for symptoms of itching. Return to the ER with new or worsening symptoms. Critical Care Time Critical Care Time: Critical Care Time: No Discharge Plan Discharge Patient Disposition: Home Clinical Impression: Rash, Potential exposure to STD, Perirectal skin irritation High risk sexual behavior Qualifiers: High risk sexual behavior type: homosexual Qualified Code(s): Z72.52 - High risk homosexual behavior Condition: Stable Prescriptions: New Benadryl 25 mg capsule 25 mg PO TID PRN (Reason: itching) Qty: 10 0RF Bactrim DS 800-160 mg tablet 1 tab PO BID 10 Days Qty: 20 0RF No Action mineral oil [[id number] Enema (min oil)] Enema 118 ml WA DAILY PRN (Reason: constipation) Qty: 472 0RF Rx Instructions: discard any unused portion polyethylene glycol 3350 [Miralax] 17 gram/dose powder 17 g PO DAILY Qty: 510 0RF lactulose 10 gram packet 20 g PO DAILY PRN (Reason: constipation) Qty: 15 0RF hydrocortisone [Preparation H Hydrocortisone] 1 % cream 1 applic topical TID PRN (Reason: skin irritation) Qty: 28.4 0RF bupropion HCl [Wellbutrin SR] 150 mg tablet sustained-release 12 hr 150 mg PO DAILY valacyclovir 1 gram tablet 1,000 mg PO TID 7 Days Qty: 21 0RF trazodone 50 mg Tablet 50 mg PO BEDTIME PRN (Reason: Sleep) 14 Days Qty: 14 1RF prazosin 1 mg Capsule 2 mg PO BEDTIME 14 Days Qty: 28 1RF mirtazapine 15 mg Tablet 15 mg PO BEDTIME Qty: 14 1RF fluoxetine 20 mg Capsule 20 mg PO DAILY Qty: 14 1RF paliperidone 6 mg Tablet Extended Release 24 Hr 6 mg PO DAILY 14 Days Qty: 14 1RF buprenorphine-naloxone 8-2 mg film 1 film sublingual Q24H 30 Days Qty: 30 0RF hydrochlorothiazide 25 mg tablet 25 mg PO DAILY PRN (Reason: edema) Qty: 14 0RF mupirocin 2 % ointment 1 applic topical BID Qty: 22 0RF Discharge Orders: Discharge ED (Routine); Ordered 10/25/22 Ordered By: Kimmy Mccurdy Discharge Diet: Usual diet Discharge Activity: Resume usual activity Patient Instructions: Opioid Safety, Pain Management Activity Restrictions/Additional Instructions: Take Bactrim as prescribed. Sitz bath recommended. Take Benadryl as needed for itching/rash. Follow-up with PCP within 1 week. Abstain from intercourse until STD testing results are obtained. Return to the ER with new or worsening symptoms. Coding Level of Care Code ED Cinema Or Theatre Manager for Mila Miner
[2022-10-25] MEDS: cefTRIAXone 1,000 MG in water for injection-sterile 2.1 ML 5 MG IM (15:52)
[2022-10-25] MEDS: penicillin g (L-A) 1,200,000 unit/2 mL Syr 2000000 UNIT IM (15:53)
[2022-10-25 16:26] LABS: Rapid Plasma Reagin Syphilis Reactive (Nonreactive)
== END 2022-10-25 16:07 | disposition home or self-care (01) ==
PROVIDERS: Emergency Provider Physician Assistant
DX: R21 Rash and other nonspecific skin eruption (principal); K62.6 Ulcer of anus and rectum; Z20.2 Contact with and (suspected) exposure to infections with a predominantly sexual mode of transmission; Z72.52 High risk homosexual behavior
CPT/HCPCS: 86592; 96372; 99284; J0561; J0696